=== PATIENT | female | born 1955 | race Caucasian/White ===

== ENCOUNTER 2019-08-19 08:04 | Day surgery (SDC) | payer BC ==
[~2019-08-19] VITALS: Ht 167.6 cm; Wt 75.0 kg
[2019-08-19 08:25] LABS: BASOPHILS 0.3 % (0-2); EOSINOPHILS 0.9 % (0-7); HEMATOCRIT 34.4 % (36.0-48.0); HEMOGLOBIN 10.7 g/dL (12-16); IMMATURE GRANULOCYTES 0.2 % (0-5); LYMPHOCYTES 42.4 % (15-50); MCH 27.5 pg (26.0-34.0); MCHC 31.1 g/dL (31.0-37.0); MCV 88.4 fL (80.0-100.0); MEAN PLATELET VOLUME 8.7 fL (7.4-10.4); MONOCYTES 9.2 % (2-11); PLATELET COUNT 232 10x3/uL (130-400); RBC 3.89 10x6/uL (4.00-5.40); RDW 14.4 % (11.5-14.5); WBC 5.9 10x3/uL (4.8-10.8)
[2019-08-19] MEDS ORDERED: ABILIFY10 MG PO (08:26)
[2019-08-19] MEDS ORDERED: BUPROPION HCL100 MG PO (08:27)
[2019-08-19] MEDS ORDERED: CELEBREX50 MG PO (08:32)
[2019-08-19] MEDS ORDERED: KLONOPIN1 MG PO (08:34)
[2019-08-19] MEDS ORDERED: PEPCID40 MG (08:35)
[2019-08-19] MEDS ORDERED: METHOCARBAMOL750 MG PO (08:35)
[2019-08-19] MEDS ORDERED: PAXIL40 MG PO (08:36)
[2019-08-19] MEDS ORDERED: OMEPRAZOLE40 MG PO (08:36)
[2019-08-19] MEDS ORDERED: CARAFATE1 G PO (08:38)
[2019-08-19] MEDS ORDERED: PRAVACHOL20 MG PO (08:38)
[2019-08-19] MEDS ORDERED: GEODON40 MG PO ×2 (08:39)
[2019-08-19 08:42] LABS: CALC OSMOLALITY 281 mosm/kg (275-300); CALCIUM 8.7 mg/dL (8.5-10.1); CARBON DIOXIDE 29.3 mmol/L (21.0-32.0); CHLORIDE - SERUM 105 mmol/L (98-107); CREATININE - SERUM 0.8 mg/dL (0.6-1.3); GLUCOSE 113 mg/dL (74-106); SODIUM 142 mmol/L (136-145); UREA NITROGEN 6 mg/dL (7-18); eGFR NON AFRICAN AMERICAN 77 mL/min (90-120)
[2019-08-19] MEDS ORDERED: XOPENEX HFA15 GM INH (08:44)
[2019-08-19 09:07] VITALS: BP 135/65; Ht 167.6 cm; Wt 75.0 kg
--- NOTE | 2019-08-19 13:08 | NUR ---
1220 IV DC'D. CATHETER TIP INTACT. NO BLEEDING AT SITE. BANDAID APPLIED. PT HAS BEEN GIVEN DISCHARGE INSTRUCTIONS AND QUESTIONS HAVE BEEN ANSWERED. PT AWARE TO HOLD CELEBREX FOR 10-14 DAYS.
--- NOTE | 2019-08-19 16:30 | HP ---
PATIENT: TAY PERALES MEDICAL RECORD: [id number] ACCOUNT: [id number] LOCATION:[facility] : 57 ADMISSION DATE: 08/19/19 PCP: No PCP HISTORY AND PHYSICAL EXAMINATION HISTORY OF PRESENT ILLNESS: The patient has gastric antral vascular ectasias. During a recent upper endoscopy, there was stigmata of recent bleeding. The patient also has a 1.5 cm polyp in the second portion of the duodenum. This polyp has been tattooed. 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 I personally reviewed the endoscopic photos. The patient is not on any blood thinners. I am going to plan for an EGD with ablation of gastric antral vascular ectasias with the argon plasma ambulance driver as well as a polypectomy of the duodenal polyp, which is in the second portion of the duodenum at 85 cm. SOCIAL HISTORY: The patient has never smoked. PAST MEDICAL AND SURGICAL HISTORY: Asthma, anxiety, duodenal polyp, arthritis, hypercholesterolemia. ALLERGIES: DEMEROL, MECLIZINE, MORPHINE, SYMBICORT. HOME MEDICINES: Reviewed. PHYSICAL EXAMINATION: GENERAL: The patient does not appear acutely ill. She does not appear chronically ill. VITAL SIGNS: Reviewed. EARS: External ears appear normal. EYES: Extraocular movements are intact. NECK: Trachea is midline. CHEST: No intercostal retractions. The entire physical examination was performed in the presence of a female nurse. IMPRESSION: 1. Duodenal polyp. 2. Gastric antral vascular ectasias, which have bled. PLAN: EGD, ablation of gastric antral vascular ectasias as well as a duodenal polypectomy. TRANSINT:[id number] Voice Confirmation ID: [id number] DOCUMENT ID: [id number] HISTORY AND PHYSICAL [id number] TAY PERALES RACHELL REESE MD at 1630 CC: EDGAR CHAMBERS MD and MARCO ANTONIO BRITTON [id number] DICTATION DATE: 08/19/19 1112 PLASTIC INSTALLER: 08/19/19 1153 [facility] 08/19/19 [facility] [address] [place] [address]
--- NOTE | 2019-08-20 10:08 | OP ---
PATIENT NAME: TAY PERALES MEDICAL RECORD: [id number] :57 LOCATION:D.OPS ADMISSION DATE: SURGEON: ASHER REESE MD DATE OF OPERATION: 08/19/2019 PREOPERATIVE DIAGNOSES: 1. History of gastric antral vascular ectasia with stigmata of bleeding. 2. Murcia's esophagus. 3. History of duodenal adenoma. 4. Dysphagia, recurrent. POSTOPERATIVE DIAGNOSES: 1. History of gastric antral vascular ectasia with stigmata of bleeding. 2. Murcia's esophagus. 3. History of duodenal adenoma. 4. Dysphagia, recurrent. 5. Minimal Murcia's, large hiatal hernia, only small punctate areas of gastric antral vascular ectasias. 6. A tattoo in the duodenum that was easily identifiable; however, we were unable to identify a residual polyp. PROCEDURE: 1. Esophagogastroduodenoscopy with biopsies in the area of Murcia's esophagus. 2. Esophageal dilation to 54-Mosotho with a ocyszin-xwv-lwdamike balloon. 3. Argon plasma coagulation therapy to areas of gastric antral vascular ectasias within the antrum of the stomach. SURGEON: Asher Reese MD SILVICULTURE TEACHER: None. BLOOD LOSS: Minimal. ANESTHESIA: IV sedation. COMPLICATIONS: None. The risks, possible complications and alternatives to the procedure were explained to the patient. She elects to proceed. The discussion specifically included, but was not limited to, bleeding requiring emergency reoperation, infection, endoscopic perforation. Just prior to the procedure, the patient mentioned that she had Murcia's esophagus; also mentioned that she had recurrent dysphagia, which was helped in the past by balloon dilation of the esophagus by Dr. Pitt. I asked her if she would like to have that procedure performed again and she stated that she would. The coronavirus is present and I believe that this case is an urgent case as she has dysphagia. She has had some bleeding from her stomach and she elects to take the risk of undergoing the procedure during the coronavirus outbreak. My belief is that we were unable to identify the duodenal adenoma as it likely was removed during Dr. Pitt's procedure and that was only about 2 months ago. It is likely that if the duodenal adenoma is going to grow back, we have not OPERATIVE REPORT [id number] TAY PERALES given it enough time to grow back. ENDOSCOPIC COURSE: The patient was conveyed to endoscopy suite electively on 08/19/2019. IV sedation was induced by the anesthesia staff. A bite block was inserted. A gastroscope was inserted into the mouth. It was advanced easily into the hypopharynx. The esophagus was easily intubated as were the stomach and duodenum. Upon withdrawal, retroflexed and angulus views were obtained. Utilizing the argon plasma manager financial services with the esophageal setting in the forced mode, I ablated all the areas of vascular ectasias that I could identify. I then readvanced into the duodenum. Utilizing normal imaging as well as narrow band imaging, I tried to find a residual or recurrent polyp. I looked around for several minutes and could not identify any polyp. I was able to get a good look at the first, second and third portion of the duodenum. I then withdrew the endoscope. I withdrew it into the cardia of the stomach. I advanced a pameiiw-epp-qzbjxycf balloon. I then sequentially dilated the entire length of the esophagus to 54-Mosotho. The gastroscope and balloon dilator were then removed. I then readvanced the gastroscope. There has been no false passage or perforation. I then obtained several 4 quadrant biopsies at the Z-line to evaluate the patient's Murcia's esophagus. I then slowly withdrew the endoscope. I will see the patient in my office in 2-3 weeks. I will recommend that her next upper endoscopy take place in 2 years to investigate the possibility of a recurrent duodenal adenoma. TRANSINT:[id number] Voice Confirmation ID: [id number] DOCUMENT ID: [id number] ASHER REESE MD at 1008 CC: [id number] DICTATION DATE: 08/19/19 1626 VICE PRESIDENT MARKETING & DEVELOPMENT: 08/19/19 1658 [facility] 08/19/19 [id number] [place] [address]
== END 2019-08-19 12:38 | disposition home or self-care (01) ==
LOC: D.OPS 08:04
PROVIDERS: Anesthesiology; ATTEND Surgery
DX: K22.70 Barrett's esophagus without dysplasia (principal); R13.10 Dysphagia, unspecified; K44.9 Diaphragmatic hernia without obstruction or gangrene; K31.811 Angiodysplasia of stomach and duodenum with bleeding; K31.7 Polyp of stomach and duodenum; J45.909 Unspecified asthma, uncomplicated